=== PATIENT | female | born 1945 | race Caucasian/White ===

== ENCOUNTER 2023-06-18 10:04 | Day surgery (SDC) | payer MEDICARE, OTHER ==
[~2023-06-18] VITALS: Ht 162.6 cm; Wt 87.7 kg
[2023-06-18] VITALS (15 sets, daily range): BP systolic 119–152; BP diastolic 57–86; PULSE 76–87; RESP 10–20; TEMP 98; O2SAT 92–98
[2023-06-18] MEDS ORDERED: diphenhydrAMINE 25mg capsule PO PRN (10:35)
[2023-06-18] MEDS ORDERED: normal saline 1,000 ML IV SCH (10:35)
[2023-06-18] MEDS ORDERED: PRAV80TA3 PO (11:24)
[2023-06-18] MEDS ORDERED: PREG75CA76 PO (11:24)
[2023-06-18] MEDS ORDERED: PRAM0.129 PO (11:24)
[2023-06-18] MEDS ORDERED: MAGN250T11 PO (11:24)
[2023-06-18] MEDS ORDERED: DENO60DI SUBCUT (11:24)
[2023-06-18] MEDS ORDERED: HYDR-3972 PO (11:24)
[2023-06-18] MEDS ORDERED: GLUC100017 PO (11:24)
[2023-06-18] MEDS ORDERED: VENL75TA4 PO (11:24)
[2023-06-18] MEDS ORDERED: ASPI81TA52 PO (11:24)
[2023-06-18] MEDS ORDERED: LORA10TA7 PO (11:24)
[2023-06-18] MEDS ORDERED: CHOL400T57 PO (11:24)
[2023-06-18] MEDS ORDERED: BIOT1CAP3 PO (11:24)
[2023-06-18] MEDS ORDERED: [UNRECOGNIZED DRUG - OTHER] EACHEYE (11:24)
[2023-06-18] MEDS ORDERED: VITA-268 PO (11:24)
[2023-06-18] MEDS ORDERED: OMEG-5 PO (11:24)
[2023-06-18] MEDS ORDERED: NITR0.4T51 SL (11:24)
[2023-06-18] MEDS ORDERED: TROS20TA4 PO (11:24)
[2023-06-18] MEDS ORDERED: CALC500T63 PO (11:24)
[2023-06-18] MEDS ORDERED: MIRT7.5T11 PO (11:24)
[2023-06-18 11:28] LABS: BASOPHILS % (AUTO) 0.7 % (0-1); EOSINOPHILS # (AUTO) 0.3 X10'3 (0-0.9); EOSINOPHILS % (AUTO) 5.9 % (0-6); HEMATOCRIT 44.5 % (35.0-45.0); LYMPHOCYTES # (AUTO) 0.9 X10'3 (1.1-4.8); LYMPHOCYTES % (AUTO) 17.5 % (21-51); MEAN CORPUSCULAR HEMOGLOBIN 31.5 PG (27.0-31.0); MEAN CORPUSCULAR HGB CONC 33.7 g/dL (33.0-36.5); MEAN CORPUSCULAR VOLUME 93.5 FL (78-98); MEAN PLATELET VOLUME 7.7 FL (7.4-10.4); MONOCYTES # (AUTO) 0.7 X10'3 (0-0.9); MONOCYTES % (AUTO) 15.3 % (2-12); NEUTROPHILS # (AUTO) 2.9 X10'3 (1.8-7.7); NEUTROPHILS % (AUTO) 60.6 % (42-75); PLATELET COUNT 221 X10'3 (140-440); RED BLOOD COUNT 4.76 X10'6 (4.20-5.60); RED CELL DISTRIBUTION WIDTH 13.8 % (11.5-14.5); WHITE BLOOD COUNT 4.8 X10'3 (4.5-11.0)
[2023-06-18 11:43] LABS: ALBUMIN 3.2 G/DL (3.4-5.0); ANION GAP 11 (8-16); APTT 27 SECONDS (22-32); BLOOD UREA NITROGEN 13 MG/DL (7-18); BUN/CREATININE RATIO 16.5 (10.0-20.0); CALCIUM 8.6 MG/DL (8.5-10.1); CHLORIDE 103 MMOL/L (99-107); CHOL/HDL RATIO 2.9 (0.00-4.99); CHOLESTEROL 163 MG/DL (0-200); CREATININE 0.79 MG/DL (0.40-0.90); GLUCOSE 135 MG/DL (70-104); HDL CHOLESTEROL 56 MG/DL (35-60); INR 1.1 INR; LDL CHOLESTEROL 90 MG/DL (50-100); POTASSIUM 3.7 MMOL/L (3.5-5.1); PROTHROMBIN TIME 11.3 SECONDS (9.0-12.0); SODIUM 138 MMOL/L (135-145); TOTAL CARBON DIOXIDE 24.3 MMOL/L (24-32); TRIGLYCERIDES 101 MG/DL (20-135); eCRCL 52 ML/MIN; eGFR 71 ML/MIN
[2023-06-18] MEDS ORDERED: proCHLORperazine 10 MG/2 ml inj ONE (13:35)
[2023-06-18] MEDS ORDERED: verapamil 2.5 mg/ml inj IV ONE (13:35)
[2023-06-18] MEDS ORDERED: fentaNYL/PF 50MCG/1 ML 2ML syringe ONE (13:36)
[2023-06-18] MEDS ORDERED: nitroGLYCERIN 500mcg/5mL D5W 5 ML IV ONE (13:36)
[2023-06-18] MEDS ORDERED: heparin 1,000unit/ml 10ml vial 10 ML ONE (13:36)
[2023-06-18] MEDS ORDERED: iohexol 350 MG/ML 50ML vial IV ONE (13:36)
[2023-06-18] MEDS ORDERED: midazolam 1 mg/ML 2ml injection ONE (13:36)
[2023-06-18] MEDS ORDERED: iohexol 350MG/ML 100ml bottle IV ONE (13:37)
[2023-06-18] MEDS ORDERED: LIDOcaine 1% (10mg/ml) 2ml vial ONE (13:39)
== END 2023-06-18 19:40 | disposition home or self-care (01) ==
LOC: SSTAY O 10:04
PROVIDERS: ATTEND Internal Medicine Cardiovascular Disease
DX: I25.119 Atherosclerotic heart disease of native coronary artery with unspecified angina pectoris (principal); I10 Essential (primary) hypertension; E11.9 Type 2 diabetes mellitus without complications; G47.30 Sleep apnea, unspecified; E78.5 Hyperlipidemia, unspecified; Z88.5 Allergy status to narcotic agent; Z79.82 Long term (current) use of aspirin; Z79.899 Other long term (current) drug therapy; Z79.01 Long term (current) use of anticoagulants
CPT/HCPCS: 80048; 80061; 82948; 85025; 85610; 85730; 93005; 93306; 93458; 99152; J0780; J1644; J2250; J3010; J3490; J7030; Q9967; 99153; A4314; A6402; C1894